=== PATIENT | female | born 1945 | race Caucasian/White ===

== ENCOUNTER 2020-05-21 01:07 | Inpatient (IN) | payer MEDICARE, BC ==
[~2020-05-21] VITALS: Ht 165.1 cm; Wt 88.0 kg
[~2020-05-21 01:07] MED LIST: ARICEPT10 MG PO; CABERGOLINE0.5 MG PO; CALAN SR240 MG PO; CEFUROXIME500 MG PO; CINNAMON PLUS1 EACH PO; CLONIDINE HCL0.1 MG PO; ECOTRIN81 MG PO; GLUCOPHAGE XR500 MG PO; HEPATITIS A VACCINE IM; LEVAQUIN500 MG PO; LIPITOR TAB 1010 MG PO; MACRODANTIN100 MG PO; NAMENDA10 MG PO; PROTONIX40 MG PO; REMERON30 MG PO; SERTRALINE HCL50 MG PO; VASOTEC20 MG PO; VITAMIN B-121000 MCG PO; ZOFRAN 4 MG TAB4 MG PO; [UNRECOGNIZED DRUG - OTHER] IM
[2020-05-21 01:42] LABS: HEMOGLOBIN 13.3 gm/dl (12.3-15.3); RED BLOOD COUNT 4.73 M/UL (4.00-5.10); WHITE BLOOD COUNT 8.6 K/UL (4.5-11.0)
[2020-05-21 02:05] LABS: BUN/CREATININE RATIO 22 (0-10)
[2020-05-22 05:47] LABS: HEMOGLOBIN 14.2 gm/dl (12.3-15.3); RED BLOOD COUNT 5.13 M/UL (4.00-5.10)
[2020-05-22 05:51] LABS: WHITE BLOOD COUNT 14.8 K/UL (4.5-11.0)
[2020-05-22 06:03] LABS: BUN/CREATININE RATIO 18 (0-10)
[2020-05-23 05:52] LABS: HEMOGLOBIN 13.2 gm/dl (12.3-15.3); RED BLOOD COUNT 4.65 M/UL (4.00-5.10)
[2020-05-23 05:56] LABS: WHITE BLOOD COUNT 10.5 K/UL (4.5-11.0)
[2020-05-25 05:37] LABS: HEMOGLOBIN 11.7 gm/dl (12.3-15.3); RED BLOOD COUNT 4.51 M/UL (4.00-5.10)
[2020-05-26 06:36] LABS: HEMOGLOBIN 13.6 gm/dl (12.3-15.3); RED BLOOD COUNT 4.77 M/UL (4.00-5.10)
[2020-05-26 06:56] LABS: BUN/CREATININE RATIO 29 (0-10)
[2020-05-27 04:03] LABS: BUN/CREATININE RATIO 30 (0-10)
[2020-05-28 11:29] LABS: WHITE BLOOD COUNT 9.5 K/UL (4.5-11.0)
[2020-05-28 11:33] LABS: HEMOGLOBIN 10.4 gm/dl (12.3-15.3); RED BLOOD COUNT 3.64 M/UL (4.00-5.10)
[2020-05-28 11:58] LABS: BUN/CREATININE RATIO 20 (0-10)
[2020-05-29 04:11] LABS: HEMOGLOBIN 10.7 gm/dl (12.3-15.3); RED BLOOD COUNT 3.74 M/UL (4.00-5.10); WHITE BLOOD COUNT 7.6 K/UL (4.5-11.0)
[2020-05-29 04:32] LABS: BUN/CREATININE RATIO 15 (0-10)
[2020-05-31 02:36] LABS: HEMOGLOBIN 11.6 gm/dl (12.3-15.3)
[2020-05-31 02:44] LABS: RED BLOOD COUNT 4.17 M/UL (4.00-5.10); WHITE BLOOD COUNT 9.6 K/UL (4.5-11.0)
[2020-05-31 02:55] LABS: BUN/CREATININE RATIO 20 (0-10)
== END 2020-05-31 17:29 | DRG 853 ==
LOC: ER1 01:07 → CDU 04:00 → MED SURG 4 04:00 → PROG CARE 05-24 17:15 → MED SURG 4 05-24 17:15 → PROG CARE 05-26 10:52
PROVIDERS: Emergency Medicine; Internal Medicine; Surgery; ADMIT Internal Medicine
PROC: B24BZZZ Ultrasonography of Heart with Aorta (ICD-10-PCS; 2020-05-22)
PROC: 0DNW4ZZ Release Peritoneum, Percutaneous Endoscopic Approach (ICD-10-PCS; 2020-05-24)
PROC: 0FB04ZX Excision of Liver, Percutaneous Endoscopic Approach, Diagnostic (ICD-10-PCS; 2020-05-24)
PROC: 0FT44ZZ Resection of Gallbladder, Percutaneous Endoscopic Approach (ICD-10-PCS; principal; 2020-05-24 14:39)
DX: A41.51 Sepsis due to Escherichia coli [E. coli] (principal); G93.41 Metabolic encephalopathy; N30.00 Acute cystitis without hematuria; K81.2 Acute cholecystitis with chronic cholecystitis; I10 Essential (primary) hypertension; R00.0 Tachycardia, unspecified; F03.90 Unspecified dementia, unspecified severity, without behavioral disturbance, psychotic disturbance, mood disturbance, and anxiety; E11.9 Type 2 diabetes mellitus without complications; R16.0 Hepatomegaly, not elsewhere classified; E87.6 Hypokalemia; R07.89 Other chest pain; R00.1 Bradycardia, unspecified; Z20.828 Contact with and (suspected) exposure to other viral communicable diseases; E78.5 Hyperlipidemia, unspecified; Z86.19 Personal history of other infectious and parasitic diseases; Z91.81 History of falling; Z87.440 Personal history of urinary (tract) infections; Z79.84 Long term (current) use of oral hypoglycemic drugs; Z79.82 Long term (current) use of aspirin; Z79.899 Other long term (current) drug therapy
CPT/HCPCS: ECHO; 36415; 71045; 76705; 80048; 80053; 80076; 81001; 82550; 82553; 82962; 83690; 83735; 83874; 83880; 84132; 84439; 84443; 84484; 85025; 85379; 87040; 87077; 87086; 87186; 88341; 88342; 88360; 93005; 93306; 96372; 96374; 96375; 96376; 97163; 97164; 99285; G0378; J0690; J1170; J1335; J1650; J2001; J2310; J2370; J2704; J2710; J3010; J7030; J7040; J7120; Q9967; U0002

== ENCOUNTER → 2020-08-28 | Outpatient (CLI) | payer MEDICARE, BC ==
[~2020-08-28] MED LIST changes: +DOXYCYCLINE HY100 MG PO; +KEFLEX CAP 250250 MG PO
== END ==
LOC: US 10:15
DX: C73 Malignant neoplasm of thyroid gland (principal); C78.7 Secondary malignant neoplasm of liver and intrahepatic bile duct; Z85.3 Personal history of malignant neoplasm of breast
CPT/HCPCS: 88341; 88342

== ENCOUNTER 2020-09-26 21:03 | Inpatient (IN) | payer MEDICARE, BC ==
[~2020-09-26] VITALS: Ht 160 cm; Wt 81.6 kg
[~2020-09-26 21:03] MED LIST changes: -DOXYCYCLINE HY100 MG PO; -KEFLEX CAP 250250 MG PO
[2020-09-26 21:46] LABS: HEMOGLOBIN 13.7 gm/dl (12.3-15.3); RED BLOOD COUNT 5.41 M/UL (4.00-5.10); WHITE BLOOD COUNT 18.6 K/UL (4.5-11.0)
[2020-09-27 06:12] LABS: HEMOGLOBIN 12.7 gm/dl (12.3-15.3); RED BLOOD COUNT 4.96 M/UL (4.00-5.10)
[2020-09-27 06:14] LABS: WHITE BLOOD COUNT 10.3 K/UL (4.5-11.0)
[2020-09-27] MEDS ORDERED: VASOTEC20 MG PO (06:31)
[2020-09-28 10:15] LABS: HEMOGLOBIN 11.4 gm/dl (12.3-15.3); RED BLOOD COUNT 4.32 M/UL (4.00-5.10); WHITE BLOOD COUNT 5.5 K/UL (4.5-11.0)
[2020-09-28 11:12] LABS: BUN/CREATININE RATIO 21 (0-10)
[2020-09-29 04:09] LABS: BUN/CREATININE RATIO 19 (0-10)
[2020-09-29] MEDS ORDERED: KEFLEX CAP 250250 MG PO (10:19)
== END 2020-09-29 12:58 | disposition home or self-care (01) | DRG 872 ==
LOC: ER1 21:03 → M/S 22:39 → CDU 22:39 → M/S 09-27 00:25
PROVIDERS: Family Medicine; Internal Medicine; ADMIT Internal Medicine
DX: A41.89 Other specified sepsis (principal); N30.00 Acute cystitis without hematuria; N10 Acute pyelonephritis; B96.1 Klebsiella pneumoniae [K. pneumoniae] as the cause of diseases classified elsewhere; E11.9 Type 2 diabetes mellitus without complications; I10 Essential (primary) hypertension; F03.90 Unspecified dementia, unspecified severity, without behavioral disturbance, psychotic disturbance, mood disturbance, and anxiety; Z20.822 Contact with and (suspected) exposure to COVID-19; R53.81 Other malaise; R29.6 Repeated falls; Z90.49 Acquired absence of other specified parts of digestive tract; Z90.710 Acquired absence of both cervix and uterus; Z87.01 Personal history of pneumonia (recurrent); Z85.05 Personal history of malignant neoplasm of liver; Z90.10 Acquired absence of unspecified breast and nipple
CPT/HCPCS: 36415; 51702; 71045; 80048; 80053; 81001; 82962; 83605; 85025; 85610; 87040; 87077; 87086; 87186; 96374; 99285; J0696; J1650; J7030; U0002

== ENCOUNTER 2020-10-29 18:27 | Emergency (ER) | payer MEDICARE, BC ==
[~2020-10-29 18:27] MED LIST changes: +KEFLEX CAP 250250 MG PO
[2020-10-29 20:04] LABS: RED BLOOD COUNT 5.1 M/UL (4.00-5.10); WHITE BLOOD COUNT 12.8 K/UL (4.5-11.0)
[2020-10-29 20:30] LABS: BUN/CREATININE RATIO 21 (0-10)
[2020-10-29] MEDS ORDERED: DOXYCYCLINE HY100 MG PO (21:22)
== END 2020-10-29 21:40 | disposition home or self-care (01) ==
LOC: ER1 18:27
PROVIDERS: Family Medicine
DX: R55 Syncope and collapse (principal); N39.0 Urinary tract infection, site not specified; Z85.850 Personal history of malignant neoplasm of thyroid
CPT/HCPCS: 70450; 71045; 80053; 81001; 82550; 82553; 83874; 84484; 85025; 85610; 87077; 87086; 87186; 93005; 99285

== ENCOUNTER → 2021-05-31 | Outpatient (CLI) | payer OTHER, MEDICARE, BC ==
[~2021-05-31] MED LIST changes: +DOXYCYCLINE HY100 MG PO
== END ==
LOC: LAB 14:16 → LBRF 14:16
DX: R30.0 Dysuria (principal); R10.9 Unspecified abdominal pain
CPT/HCPCS: 81001; 87077; 87086; 87186